=== PATIENT | male | born 1935 | race Caucasian/White ===

== ENCOUNTER 2018-05-18 10:40 | Inpatient (IN) | payer OTHER ==
[2018-05-18] MEDS: TRANEXAMIC ACID 1,000 MG in D5W 100 ML AT INCISION X1 IVPB (06:00)
[2018-05-18] MEDS: CEFAZOLIN 2 GM/50 ML (PMX) 50 ML (FOR WT < 120 KG) IVPB (06:00)
[2018-05-18] MEDS: LACTATED RINGER'S 1,000 ML IV (06:00)
[2018-05-18] MEDS: TRANEXAMIC ACID 1,000 MG in D5W 100 ML AT CLOSURE X1 IVPB (06:00)
[~2018-05-18 10:40] MED LIST: ETOMIDATE 20 MG INJ; ONDANSETRON 4 MG INJ; SEVOFLURANE 15 MIN
[2018-05-18] MEDS: ONDANSETRON 4 MG INJ IV ×3 (11:30→23:30)
[2018-05-18] MEDS: ASPIRIN (EC) 325 MG TAB PO (11:30)
[2018-05-18] MEDS ORDERED: oxyCODONE 5 MG TAB PO (11:30)
[2018-05-18] MEDS ORDERED: BISACODYL 10 MG SUPP PR (11:30)
[2018-05-18] MEDS ORDERED: BETHANECHOL 25 MG TAB PO (11:30)
[2018-05-18] MEDS ORDERED: NACL 0.9% 3 ML SYG IV (11:30)
[2018-05-18] MEDS: DOCUSATE SODIUM 100 MG CAP PO (11:30)
[2018-05-18] MEDS ORDERED: NALOXONE (0.4 MG/ML) INJ IV (11:30)
[2018-05-18] MEDS ORDERED: MAGNESIUM HYDROXIDE 30ML CUP PO (11:30)
[2018-05-18] MEDS ORDERED: DIPHENHYDRAMINE 50 MG INJ IV ×3 (11:30→16:00)
[2018-05-18] MEDS ORDERED: NA PHOSPHATE/BIPHOS 133 ML ENEMA PR (11:30)
[2018-05-18] MEDS ORDERED: SOD CHLORIDE 0.9% 500 ML IV (12:00)
[2018-05-18] MEDS ORDERED: FENTAnyl 50 MCG/ML VIAL (12:00)
[2018-05-18] MEDS ORDERED: MIDAZOLAM 1 MG/ML 2 ML INJ (12:01)
[2018-05-18 12:02] LABS: POTASSIUM 4.4 mmol/L (3.5-5.1)
[2018-05-18] MEDS ORDERED: BUPIVACAINE 0.75%/DEXT (SPINAL) 2 ML INJ (12:04)
[2018-05-18] MEDS ORDERED: PROPOFOL 20 ML (12:36)
[2018-05-18] MEDS ORDERED: DEXAMETHASONE 4 MG/ML 1 ML INJ (12:36)
[2018-05-18] MEDS ORDERED: LIDOCAINE 100 MG SYRINGE (12:36)
[2018-05-18] MEDS ORDERED: ALBUMIN HUMAN 5% 250 ML IV ×2 (13:00→16:00)
[2018-05-18] MEDS: SOD CHLORIDE 0.9% 1,000 ML IV (13:00)
[2018-05-18] MEDS ORDERED: ONDANSETRON 4 MG INJ IV ×2 (13:00→16:00)
[2018-05-18] MEDS ORDERED: LEVALBUTEROL (NEB) 1.25 MG/0.5 ML AMP HHN ×2 (13:00→16:00)
[2018-05-18] MEDS ORDERED: LABETALOL HCL 20MG INJ IV ×2 (13:00→16:00)
[2018-05-18] MEDS ORDERED: EPHEDrine SULFATE 50 MG/5 ML SYG IV ×2 (13:00→16:00)
[2018-05-18] MEDS ORDERED: MIDAZOLAM 1 MG/ML 2 ML INJ IV ×2 (13:00→16:00)
[2018-05-18] MEDS ORDERED: LORAZEPAM 2 MG INJ IV ×2 (13:00→16:00)
[2018-05-18] MEDS ORDERED: MEPERIDINE 25 MG INJ IV ×2 (13:00→16:00)
[2018-05-18] MEDS ORDERED: HYDROmorphONE 1 MG/5 ML IV SYRINGE IV ×3 (13:00)
[2018-05-18] MEDS ORDERED: FENTAnyl 50 MCG/ML VIAL IV ×4 (13:00→16:00)
[2018-05-18] MEDS ORDERED: IPRATROPIUM (NEB) 0.5 MG/2.5 ML AMP HHN ×2 (13:00→16:00)
[2018-05-18] MEDS ORDERED: LIDOCAINE 2% (SDV) 5 ML INJ (13:35)
[2018-05-18] MEDS: CEFAZOLIN 1 GM/50 ML (PMX) 50 ML IVPB ×2 (14:30→23:33)
[2018-05-18] MEDS: BACITRACIN 50000 UNITS INJ (14:55)
[2018-05-18] MEDS: POLYMYXIN B 500000 UNIT INJ (14:55)
[2018-05-18] MEDS ORDERED: HYDROmorphONE 0.5 MG/0.5 ML SYG IV ×3 (16:00)
[2018-05-18] MEDS ORDERED: hydrALAzine 20 MG INJ IV (16:00)
[2018-05-18] MEDS ORDERED: EPHEDrine SULFATE 50 MG/5 ML SYG (16:13)
[2018-05-18] MEDS ORDERED: PHENYLephrine (100 MCG/ML) 5ML SYG (16:13)
[2018-05-18] MEDS: VANCOMYCIN 1 GM INJ (16:28)
[2018-05-18] MEDS ORDERED: ACETAMINOPHEN 1000MG/100ML IV 100 ML (16:41)
[2018-05-18] MEDS: INSULIN ASPART [NOVOLOG] 3 ML PEN SC ×3 (17:35→20:39)
[2018-05-18] MEDS: SEVELAMER 800 MG TAB PO (17:35)
[2018-05-18] MEDS ORDERED: GLUCOSE GEL 15 GRAM TUBE PO (18:00)
[2018-05-18] MEDS ORDERED: DEXTROSE 50% 50 ML SYRINGE IV ×2 (18:00)
[2018-05-18] MEDS ORDERED: GLUCAGON 1 MG INJ IM (18:00)
[2018-05-18] MEDS ORDERED: GLUCOSE GEL 15 GRAM TUBE BUCCAL (18:00)
[2018-05-18 18:15] LABS: Allen Test ACCEPTAB; Arterial Base Excess -0.8 mmol/L (-3.0-3); Arterial COHb 2.1 % (0.0-3.0); Arterial Fraction of Oxyhgb 97.7 % (93.0-99.0); Arterial HCO3 24.4 mmol/L (22.0-26.0); Arterial MetHb 0.2 % (0.0-1.5); Arterial Total Hemglobin 9.3 g/dl (12.0-18.0); Arterial pCO2 42.7 mmhg (35-45); MODE MASK - SIMPLE; Site Right Radial
[2018-05-18 18:20] LABS: ADD MAN DIFF? NO
[2018-05-18 18:22] LABS: BASOPHIL # 0.1 10^3/ul (0.0-0.1); BASOPHILS % 0.3 % (0.0-2.0); EOSINOPHILS # 0.2 10^3/ul (0.0-0.5); HEMATOCRIT 27.8 % (42.0-52.0); HEMOGLOBIN 8.8 g/dl (14.0-18.0); LYMPHOCYTES # 1.7 10^3/ul (0.8-2.9); LYMPHOCYTES % 8.9 % (15.0-51.0); MEAN CORPUSCULAR HEMOGLOBIN 31.7 pg (29.0-33.0); MEAN CORPUSCULAR HGB CONC 31.7 g/dl (32.0-37.0); MEAN PLATELET VOLUME 10.6 fl (7.4-10.4); MONOCYTE # 0.6 10^3/ul (0.3-0.9); MONOCYTES % 3.3 % (0.0-11.0); NEUTROPHIL # 16.1 10^3/ul (1.6-7.5); NEUTROPHILS % 85.6 % (39.0-77.0); PLATELET COUNT 229 10^3/UL (140-415); RED BLOOD COUNT 2.78 10^6/ul (4.70-6.10); RED CELL DISTRIBUTION WIDTH 13.5 % (11.5-14.5)
[2018-05-18 18:22] LABS: WHITE BLOOD COUNT 18.8 10^3/ul (4.8-10.8)
[2018-05-18 18:40] LABS: ALANINE AMINOTRANSFERASE 14 IU/L (13-69); ALBUMIN 3.9 g/dl (3.3-4.9); ALBUMIN/GLOBULIN RATIO 1.44; ALKALINE PHOSPHATASE 84 IU/L (42-121); ANION GAP 20 (8-16); ASPARTATE AMINO TRANSFERASE 13 IU/L (15-46); BILIRUBIN,INDIRECT 0.2 mg/dl (0-1.1); BILIRUBIN,TOTAL 0.2 mg/dl (0.2-1.3); BLOOD UREA NITROGEN 31 mg/dl (7-20); CALCIUM 9.6 mg/dl (8.4-10.2); CARBON DIOXIDE 27 mmol/L (21-31); CHLORIDE 99 mmol/L (97-110); CREATININE 5.79 mg/dl (0.61-1.24); GLUCOSE 164 mg/dl (70-220); MAGNESIUM 2.2 mg/dl (1.7-2.5); PHOSPHORUS 5.7 mg/dl (2.5-4.9); POTASSIUM 3.9 mmol/L (3.5-5.1); SODIUM 142 mmol/L (135-144); TOTAL PROTEIN 6.6 g/dl (6.1-8.1)
[2018-05-18] MEDS: ACETAMINOPHEN 1000MG/100ML IV 100 ML IVPB (18:40)
[2018-05-18 18:48] LABS: PROTIME 13.3 Sec (11.9-14.9)
[2018-05-18 18:49] LABS: PARTIAL THROMBOPLASTIN TIME 30.2 Sec (23.0-35.0)
[2018-05-18] MEDS ORDERED: INSULIN GLARGINE [LANTus] (100 UNITS/ML) SYG SC (20:00)
[2018-05-18] MEDS: hydrALAzine 20 MG INJ IV (20:14)
[2018-05-18] MEDS: oxyCODONE 5 MG TAB PO (20:14)
[2018-05-18] MEDS: ACCU-CHEK XX (20:29)
[2018-05-18] MEDS: FISH OIL 1,000 MG CAP PO (20:35)
[2018-05-18] MEDS: ATORVASTATIN 10 MG TAB PO (20:35)
[2018-05-18] MEDS: LACTOBACILLUS RHAMNOSUS CAP PO (20:35)
[2018-05-18] MEDS: INSULIN GLARGINE [LANTus] (100 UNITS/ML) SYG SC (20:39)
[2018-05-18] MEDS: CHOLECALCIFEROL 1,000 UNIT TAB PO (20:39)
[2018-05-18] MEDS ORDERED: NON-FORMULARY/PATIENT OWN MED (Lactobacillus Acidophilus (Probiotic) 1 CAP) PO (21:00)
[2018-05-19] MEDS: SOD CHLORIDE 0.9% 1,000 ML IV ×2 (01:30→14:00)
[2018-05-19] MEDS: ACCU-CHEK XX ×7 (02:29→19:35)
[2018-05-19] MEDS: LACTATED RINGER'S 1,000 ML IV ×2 (02:30→05:05)
[2018-05-19] MEDS: oxyCODONE 5 MG TAB PO ×2 (04:31→19:30)
[2018-05-19] MEDS: ONDANSETRON 4 MG INJ IV (04:33)
[2018-05-19 05:06] LABS: ADD MAN DIFF? NO
[2018-05-19 05:14] LABS: WHITE BLOOD COUNT 11.6 10^3/ul (4.8-10.8)
[2018-05-19 05:14] LABS: BASOPHILS % 0.2 % (0.0-2.0); HEMATOCRIT 25.9 % (42.0-52.0); HEMOGLOBIN 8.3 g/dl (14.0-18.0); LYMPHOCYTES # 0.7 10^3/ul (0.8-2.9); MEAN CORPUSCULAR HEMOGLOBIN 31.7 pg (29.0-33.0); MEAN CORPUSCULAR VOLUME 98.9 fl (82.0-101.0); MEAN PLATELET VOLUME 11.2 fl (7.4-10.4); MONOCYTE # 0.8 10^3/ul (0.3-0.9); MONOCYTES % 6.7 % (0.0-11.0); NEUTROPHILS % 86.7 % (39.0-77.0); PLATELET COUNT 227 10^3/UL (140-415); RED BLOOD COUNT 2.62 10^6/ul (4.70-6.10); RED CELL DISTRIBUTION WIDTH 13.5 % (11.5-14.5)
[2018-05-19] MEDS: PANTOPRAZOLE (EC) 40 MG TAB PO (05:36)
[2018-05-19] MEDS: CEFAZOLIN 1 GM/50 ML (PMX) 50 ML IVPB (05:36)
[2018-05-19 05:47] LABS: ANION GAP 20 (8-16); BLOOD UREA NITROGEN 35 mg/dl (7-20); CALCIUM 8.9 mg/dl (8.4-10.2); CARBON DIOXIDE 25 mmol/L (21-31); CHLORIDE 101 mmol/L (97-110); CREATININE 6.25 mg/dl (0.61-1.24); GLUCOSE 260 mg/dl (70-220); POTASSIUM 5.2 mmol/L (3.5-5.1); SODIUM 141 mmol/L (135-144)
[2018-05-19 08:14] LABS: HEMOGLOBIN A1C 5.6 % (0-5.9)
[2018-05-19] MEDS: INSULIN ASPART [NOVOLOG] 3 ML PEN SC ×8 (08:35→20:45)
[2018-05-19] MEDS: ASPIRIN 81 MG TAB PO (08:41)
[2018-05-19] MEDS: DOCUSATE SODIUM 100 MG CAP PO ×2 (08:41→20:37)
[2018-05-19] MEDS: FINASTERIDE 5 MG TAB PO (08:42)
[2018-05-19] MEDS: VITAMIN B COMPLEX/VIT C CAP PO (08:42)
[2018-05-19] MEDS: FEBUXOSTAT 40 MG TABLET PO (08:42)
[2018-05-19] MEDS: FISH OIL 1,000 MG CAP PO ×2 (08:43→20:38)
[2018-05-19] MEDS: CHOLECALCIFEROL 1,000 UNIT TAB PO ×2 (08:43→20:37)
[2018-05-19] MEDS: CELECOXIB 200 MG CAP PO ×2 (08:43→20:38)
[2018-05-19] MEDS: LEFLUNOMIDE 10 MG TAB PO (08:44)
[2018-05-19] MEDS: SEVELAMER 800 MG TAB PO ×3 (08:44→18:03)
[2018-05-19] MEDS: LACTOBACILLUS RHAMNOSUS CAP PO ×2 (08:45→20:37)
[2018-05-19] MEDS: FERROUS FUMARATE (SR) TAB PO ×2 (08:45→20:37)
[2018-05-19] MEDS ORDERED: NON-FORMULARY/PATIENT OWN MED (Aspirin (Low Dose Aspirin) 81 MG) PO (09:00)
[2018-05-19] MEDS ORDERED: LEFLUNOMIDE 20 MG TAB PO (09:00)
[2018-05-19] MEDS ORDERED: UBIDECARENONE 200 MG PO (09:00)
[2018-05-19] MEDS: ASPIRIN (EC) 325 MG TAB PO (09:12)
[2018-05-19 12:39] LABS: HEPATITIS B SURFACE ANTIGEN NEGATIVE (NEGATIVE)
[2018-05-19 14:54] LABS: HEPATITIS B SURFACE ANTIBODY INDETERMINATE (NEGATIVE)
[2018-05-19] MEDS: EPOETIN 4000 UNITS/1 ML INJ (ESRD) SC (18:03)
[2018-05-19] MEDS: INSULIN GLARGINE [LANTus] (100 UNITS/ML) SYG SC (20:36)
[2018-05-19] MEDS: ATORVASTATIN 10 MG TAB PO (20:37)
[2018-05-19] MEDS: ZOLPIDEM 5 MG TAB PO (22:10)
[2018-05-20] MEDS: SOD CHLORIDE 0.9% 1,000 ML IV (02:30)
[2018-05-20] MEDS: ACCU-CHEK XX ×7 (02:42→19:55)
[2018-05-20 05:14] LABS: ADD MAN DIFF? NO
[2018-05-20 05:19] LABS: BASOPHILS % 0.4 % (0.0-2.0); EOSINOPHILS # 0.2 10^3/ul (0.0-0.5); HEMATOCRIT 24.3 % (42.0-52.0); HEMOGLOBIN 7.5 g/dl (14.0-18.0); LYMPHOCYTES # 1.6 10^3/ul (0.8-2.9); LYMPHOCYTES % 21.5 % (15.0-51.0); MEAN CORPUSCULAR HGB CONC 30.9 g/dl (32.0-37.0); MEAN CORPUSCULAR VOLUME 100.4 fl (82.0-101.0); MEAN PLATELET VOLUME 10.9 fl (7.4-10.4); MONOCYTE # 0.8 10^3/ul (0.3-0.9); MONOCYTES % 10.9 % (0.0-11.0); NEUTROPHIL # 4.8 10^3/ul (1.6-7.5); NEUTROPHILS % 63.9 % (39.0-77.0); PLATELET COUNT 206 10^3/UL (140-415); RED BLOOD COUNT 2.42 10^6/ul (4.70-6.10); RED CELL DISTRIBUTION WIDTH 13.7 % (11.5-14.5)
[2018-05-20 05:19] LABS: WHITE BLOOD COUNT 7.4 10^3/ul (4.8-10.8)
[2018-05-20] MEDS: PANTOPRAZOLE (EC) 40 MG TAB PO (05:29)
[2018-05-20] MEDS: oxyCODONE 5 MG TAB PO (05:30)
[2018-05-20 05:51] LABS: ANION GAP 10 (8-16); BLOOD UREA NITROGEN 15 mg/dl (7-20); CALCIUM 8.7 mg/dl (8.4-10.2); CARBON DIOXIDE 32 mmol/L (21-31); CHLORIDE 104 mmol/L (97-110); CREATININE 3.58 mg/dl (0.61-1.24); GLUCOSE 131 mg/dl (70-220); POTASSIUM 4.4 mmol/L (3.5-5.1); SODIUM 142 mmol/L (135-144)
[2018-05-20] MEDS: INSULIN ASPART [NOVOLOG] 3 ML PEN SC ×7 (07:35→20:57)
[2018-05-20] MEDS: SEVELAMER 800 MG TAB PO ×3 (07:55→17:55)
[2018-05-20] MEDS: DOCUSATE SODIUM 100 MG CAP PO ×2 (08:37→20:56)
[2018-05-20] MEDS: FISH OIL 1,000 MG CAP PO ×2 (08:37→20:56)
[2018-05-20] MEDS: LACTOBACILLUS RHAMNOSUS CAP PO ×2 (08:37→20:56)
[2018-05-20] MEDS: CHOLECALCIFEROL 1,000 UNIT TAB PO ×2 (08:38→20:56)
[2018-05-20] MEDS: VITAMIN B COMPLEX/VIT C CAP PO (08:38)
[2018-05-20] MEDS: FERROUS FUMARATE (SR) TAB PO ×2 (08:38→20:56)
[2018-05-20] MEDS: FINASTERIDE 5 MG TAB PO (08:38)
[2018-05-20] MEDS: LEFLUNOMIDE 10 MG TAB PO (08:39)
[2018-05-20] MEDS: FEBUXOSTAT 40 MG TABLET PO (08:39)
[2018-05-20] MEDS: CELECOXIB 200 MG CAP PO ×2 (08:39→20:57)
[2018-05-20] MEDS: ASPIRIN (EC) 325 MG TAB PO (08:41)
[2018-05-20] MEDS: TERBINAFINE 250 MG TAB PO ×2 (10:29→20:56)
[2018-05-20] MEDS ORDERED: SOD CHLORIDE 0.9% 1,000 ML IV (13:41)
[2018-05-20] MEDS: INSULIN GLARGINE [LANTus] (100 UNITS/ML) SYG SC (20:55)
[2018-05-20] MEDS: ATORVASTATIN 10 MG TAB PO (20:56)
[2018-05-21] MEDS: ACCU-CHEK XX ×7 (01:17→19:55)
[2018-05-21 04:56] LABS: ADD MAN DIFF? NO
[2018-05-21 05:08] LABS: WHITE BLOOD COUNT 7.7 10^3/ul (4.8-10.8)
[2018-05-21 05:08] LABS: BASOPHILS % 0.5 % (0.0-2.0); EOSINOPHILS # 0.5 10^3/ul (0.0-0.5); EOSINOPHILS % 6.6 % (0.0-7.0); HEMATOCRIT 24.1 % (42.0-52.0); HEMOGLOBIN 7.6 g/dl (14.0-18.0); LYMPHOCYTES # 1.7 10^3/ul (0.8-2.9); LYMPHOCYTES % 21.8 % (15.0-51.0); MEAN CORPUSCULAR HEMOGLOBIN 31.5 pg (29.0-33.0); MEAN CORPUSCULAR HGB CONC 31.5 g/dl (32.0-37.0); MEAN PLATELET VOLUME 10.9 fl (7.4-10.4); MONOCYTE # 0.7 10^3/ul (0.3-0.9); MONOCYTES % 9.3 % (0.0-11.0); NEUTROPHIL # 4.7 10^3/ul (1.6-7.5); NEUTROPHILS % 61.5 % (39.0-77.0); PLATELET COUNT 232 10^3/UL (140-415); RED BLOOD COUNT 2.41 10^6/ul (4.70-6.10); RED CELL DISTRIBUTION WIDTH 13.6 % (11.5-14.5)
[2018-05-21 05:33] LABS: ANION GAP 11 (8-16); BLOOD UREA NITROGEN 24 mg/dl (7-20); CALCIUM 8.6 mg/dl (8.4-10.2); CARBON DIOXIDE 31 mmol/L (21-31); CHLORIDE 102 mmol/L (97-110); CREATININE 5.62 mg/dl (0.61-1.24); GLUCOSE 120 mg/dl (70-220); POTASSIUM 4.4 mmol/L (3.5-5.1); SODIUM 140 mmol/L (135-144)
[2018-05-21] MEDS: PANTOPRAZOLE (EC) 40 MG TAB PO (05:33)
[2018-05-21] MEDS: INSULIN ASPART [NOVOLOG] 3 ML PEN SC ×7 (08:30→21:00)
[2018-05-21] MEDS: LACTOBACILLUS RHAMNOSUS CAP PO ×2 (09:19→21:09)
[2018-05-21] MEDS: CELECOXIB 200 MG CAP PO (09:19)
[2018-05-21] MEDS: VITAMIN B COMPLEX/VIT C CAP PO (09:19)
[2018-05-21] MEDS: CHOLECALCIFEROL 1,000 UNIT TAB PO ×2 (09:19→21:08)
[2018-05-21] MEDS: oxyCODONE 5 MG TAB PO ×2 (09:19→20:26)
[2018-05-21] MEDS: FERROUS FUMARATE (SR) TAB PO ×2 (09:20→22:37)
[2018-05-21] MEDS: TERBINAFINE 250 MG TAB PO ×2 (09:20→21:08)
[2018-05-21] MEDS: ASPIRIN (EC) 325 MG TAB PO (09:20)
[2018-05-21] MEDS: LEFLUNOMIDE 10 MG TAB PO (09:20)
[2018-05-21] MEDS: SEVELAMER CARBONATE 800 MG TABLET PO ×3 (09:20→17:52)
[2018-05-21] MEDS: FEBUXOSTAT 40 MG TABLET PO (09:20)
[2018-05-21] MEDS: FISH OIL 1,000 MG CAP PO ×2 (09:20→21:08)
[2018-05-21] MEDS: FINASTERIDE 5 MG TAB PO (09:20)
[2018-05-21] MEDS: DOCUSATE SODIUM 100 MG CAP PO ×2 (09:21→21:08)
[2018-05-21] MEDS: INSULIN GLARGINE [LANTus] (100 UNITS/ML) SYG SC (20:00)
[2018-05-21] MEDS: GLUCOSE GEL 15 GRAM TUBE PO ×3 (21:05→22:55)
[2018-05-21] MEDS: ATORVASTATIN 10 MG TAB PO (21:09)
[2018-05-21] MEDS: CELECOXIB 100 MG CAP PO (22:37)
[2018-05-21 23:23] LABS: GLUCOSE 56 mg/dl (70-220)
[2018-05-22] MEDS: DEXTROSE 50% 50 ML SYRINGE IV (00:23)
[2018-05-22] MEDS: ACCU-CHEK XX ×7 (02:00→20:18)
[2018-05-22 04:50] LABS: ADD MAN DIFF? NO
[2018-05-22 04:56] LABS: BASOPHIL # 0.1 10^3/ul (0.0-0.1); BASOPHILS % 0.6 % (0.0-2.0); EOSINOPHILS # 0.6 10^3/ul (0.0-0.5); EOSINOPHILS % 7.5 % (0.0-7.0); HEMATOCRIT 25.2 % (42.0-52.0); LYMPHOCYTES # 1.6 10^3/ul (0.8-2.9); LYMPHOCYTES % 19.1 % (15.0-51.0); MEAN CORPUSCULAR HEMOGLOBIN 31.3 pg (29.0-33.0); MEAN CORPUSCULAR HGB CONC 31.7 g/dl (32.0-37.0); MEAN CORPUSCULAR VOLUME 98.4 fl (82.0-101.0); MEAN PLATELET VOLUME 10.9 fl (7.4-10.4); MONOCYTE # 0.7 10^3/ul (0.3-0.9); MONOCYTES % 8.8 % (0.0-11.0); NEUTROPHIL # 5.3 10^3/ul (1.6-7.5); NEUTROPHILS % 63.3 % (39.0-77.0); PLATELET COUNT 275 10^3/UL (140-415); RED BLOOD COUNT 2.56 10^6/ul (4.70-6.10); RED CELL DISTRIBUTION WIDTH 13.5 % (11.5-14.5)
[2018-05-22 04:56] LABS: WHITE BLOOD COUNT 8.4 10^3/ul (4.8-10.8)
[2018-05-22] MEDS: PANTOPRAZOLE (EC) 40 MG TAB PO (05:22)
[2018-05-22 05:27] LABS: ANION GAP 16 (8-16); BLOOD UREA NITROGEN 33 mg/dl (7-20); CALCIUM 8.6 mg/dl (8.4-10.2); CARBON DIOXIDE 28 mmol/L (21-31); CHLORIDE 96 mmol/L (97-110); CREATININE 7.21 mg/dl (0.61-1.24); GLUCOSE 186 mg/dl (70-220); POTASSIUM 4.8 mmol/L (3.5-5.1); SODIUM 135 mmol/L (135-144)
[2018-05-22] MEDS: INSULIN ASPART [NOVOLOG] 3 ML PEN SC ×7 (07:50→20:18)
[2018-05-22] MEDS: FISH OIL 1,000 MG CAP PO ×2 (09:00→20:18)
[2018-05-22] MEDS: SEVELAMER CARBONATE 800 MG TABLET PO ×3 (09:02→18:08)
[2018-05-22] MEDS: oxyCODONE 5 MG TAB PO (09:04)
[2018-05-22] MEDS: FEBUXOSTAT 40 MG TABLET PO (09:05)
[2018-05-22] MEDS: CELECOXIB 100 MG CAP PO ×2 (09:05→20:18)
[2018-05-22] MEDS: FINASTERIDE 5 MG TAB PO (09:05)
[2018-05-22] MEDS: VITAMIN B COMPLEX/VIT C CAP PO (09:05)
[2018-05-22] MEDS: ASPIRIN (EC) 325 MG TAB PO (09:05)
[2018-05-22] MEDS: TERBINAFINE 250 MG TAB PO ×2 (09:05→20:18)
[2018-05-22] MEDS: FERROUS FUMARATE (SR) TAB PO ×2 (09:05→20:18)
[2018-05-22] MEDS: LEFLUNOMIDE 10 MG TAB PO (09:05)
[2018-05-22] MEDS: LACTOBACILLUS RHAMNOSUS CAP PO ×2 (09:06→20:18)
[2018-05-22] MEDS: CHOLECALCIFEROL 1,000 UNIT TAB PO ×2 (09:06→20:18)
[2018-05-22] MEDS: EPOETIN 10000 UNITS/1 ML INJ (ESRD) SC (18:11)
[2018-05-22] MEDS: ATORVASTATIN 10 MG TAB PO (20:18)
[2018-05-23] MEDS: ACCU-CHEK XX ×7 (01:30→19:55)
[2018-05-23] MEDS: oxyCODONE 5 MG TAB PO ×3 (01:30→23:56)
[2018-05-23] MEDS: PANTOPRAZOLE (EC) 40 MG TAB PO (05:37)
[2018-05-23] MEDS ORDERED: CEPASTAT LOZENGE MT (07:30)
[2018-05-23] MEDS: VITAMIN B COMPLEX/VIT C CAP PO (08:31)
[2018-05-23] MEDS: SEVELAMER CARBONATE 800 MG TABLET PO ×3 (08:31→17:53)
[2018-05-23] MEDS: LEFLUNOMIDE 10 MG TAB PO (08:31)
[2018-05-23] MEDS: LACTOBACILLUS RHAMNOSUS CAP PO ×2 (08:31→21:00)
[2018-05-23] MEDS: FERROUS FUMARATE (SR) TAB PO ×2 (08:32→21:00)
[2018-05-23] MEDS: FEBUXOSTAT 40 MG TABLET PO (08:32)
[2018-05-23] MEDS: CELECOXIB 100 MG CAP PO ×2 (08:32→20:56)
[2018-05-23] MEDS: TERBINAFINE 250 MG TAB PO ×2 (08:32→21:00)
[2018-05-23] MEDS: ASPIRIN (EC) 325 MG TAB PO (08:32)
[2018-05-23] MEDS: SENNA/DOCUSATE NA (8.6MG/50MG) TAB PO (08:32)
[2018-05-23] MEDS: FISH OIL 1,000 MG CAP PO ×2 (08:32→21:00)
[2018-05-23] MEDS: CHOLECALCIFEROL 1,000 UNIT TAB PO ×2 (08:32→21:00)
[2018-05-23] MEDS: FINASTERIDE 5 MG TAB PO (08:32)
[2018-05-23] MEDS: INSULIN ASPART [NOVOLOG] 3 ML PEN SC ×7 (08:48→21:00)
[2018-05-23 09:03] LABS: ADD MAN DIFF? NO
[2018-05-23 09:08] LABS: WHITE BLOOD COUNT 8.1 10^3/ul (4.8-10.8)
[2018-05-23 09:08] LABS: BASOPHIL # 0.1 10^3/ul (0.0-0.1); BASOPHILS % 0.6 % (0.0-2.0); EOSINOPHILS # 0.7 10^3/ul (0.0-0.5); EOSINOPHILS % 8.1 % (0.0-7.0); HEMATOCRIT 26.1 % (42.0-52.0); HEMOGLOBIN 8.2 g/dl (14.0-18.0); LYMPHOCYTES # 1.7 10^3/ul (0.8-2.9); LYMPHOCYTES % 20.7 % (15.0-51.0); MEAN CORPUSCULAR HEMOGLOBIN 31.4 pg (29.0-33.0); MEAN CORPUSCULAR HGB CONC 31.4 g/dl (32.0-37.0); MEAN PLATELET VOLUME 10.2 fl (7.4-10.4); MONOCYTE # 0.9 10^3/ul (0.3-0.9); MONOCYTES % 11.6 % (0.0-11.0); NEUTROPHIL # 4.7 10^3/ul (1.6-7.5); NEUTROPHILS % 58.4 % (39.0-77.0); PLATELET COUNT 309 10^3/UL (140-415); RED BLOOD COUNT 2.61 10^6/ul (4.70-6.10); RED CELL DISTRIBUTION WIDTH 13.2 % (11.5-14.5)
[2018-05-23 10:01] LABS: ANION GAP 14 (8-16); BLOOD UREA NITROGEN 21 mg/dl (7-20); CALCIUM 8.9 mg/dl (8.4-10.2); CARBON DIOXIDE 29 mmol/L (21-31); CHLORIDE 100 mmol/L (97-110); CREATININE 5.42 mg/dl (0.61-1.24); GLUCOSE 142 mg/dl (70-220); POTASSIUM 4.7 mmol/L (3.5-5.1); SODIUM 138 mmol/L (135-144)
[2018-05-23 10:07] LABS: IRON 53 ug/dl (35-150)
[2018-05-23 10:16] LABS: % IRON SATURATION 28 % SAT (22-52); TOTAL IRON BINDING CAPACITY 188 ug/dl (241-421)
[2018-05-23] MEDS: ATORVASTATIN 10 MG TAB PO (20:56)
[2018-05-24] MEDS: ACCU-CHEK XX ×5 (02:00→14:40)
[2018-05-24] MEDS: PANTOPRAZOLE (EC) 40 MG TAB PO (05:04)
[2018-05-24 08:30] LABS: ADD MAN DIFF? NO
[2018-05-24 08:31] LABS: WHITE BLOOD COUNT 9.3 10^3/ul (4.8-10.8)
[2018-05-24 08:31] LABS: BASOPHILS % 0.4 % (0.0-2.0); EOSINOPHILS # 0.7 10^3/ul (0.0-0.5); EOSINOPHILS % 7.4 % (0.0-7.0); HEMATOCRIT 27.8 % (42.0-52.0); HEMOGLOBIN 8.6 g/dl (14.0-18.0); LYMPHOCYTES % 21.9 % (15.0-51.0); MEAN CORPUSCULAR HEMOGLOBIN 30.9 pg (29.0-33.0); MEAN CORPUSCULAR HGB CONC 30.9 g/dl (32.0-37.0); MONOCYTE # 1.2 10^3/ul (0.3-0.9); MONOCYTES % 12.5 % (0.0-11.0); NEUTROPHIL # 5.3 10^3/ul (1.6-7.5); NEUTROPHILS % 57.3 % (39.0-77.0); PLATELET COUNT 347 10^3/UL (140-415); RED BLOOD COUNT 2.78 10^6/ul (4.70-6.10); RED CELL DISTRIBUTION WIDTH 13.3 % (11.5-14.5)
[2018-05-24] MEDS: INSULIN ASPART [NOVOLOG] 3 ML PEN SC ×4 (08:41→12:54)
[2018-05-24 08:50] LABS: ANION GAP 15 (8-16); BLOOD UREA NITROGEN 26 mg/dl (7-20); CALCIUM 8.9 mg/dl (8.4-10.2); CARBON DIOXIDE 28 mmol/L (21-31); CHLORIDE 101 mmol/L (97-110); CREATININE 7.07 mg/dl (0.61-1.24); GLUCOSE 160 mg/dl (70-220); POTASSIUM 4.8 mmol/L (3.5-5.1); SODIUM 139 mmol/L (135-144)
[2018-05-24] MEDS: SEVELAMER CARBONATE 800 MG TABLET PO ×2 (09:04→13:14)
[2018-05-24] MEDS: CHOLECALCIFEROL 1,000 UNIT TAB PO (09:05)
[2018-05-24] MEDS: CELECOXIB 100 MG CAP PO (09:05)
[2018-05-24] MEDS: FERROUS FUMARATE (SR) TAB PO (09:05)
[2018-05-24] MEDS: FISH OIL 1,000 MG CAP PO (09:05)
[2018-05-24] MEDS: FEBUXOSTAT 40 MG TABLET PO (09:05)
[2018-05-24] MEDS: VITAMIN B COMPLEX/VIT C CAP PO (09:05)
[2018-05-24] MEDS: TERBINAFINE 250 MG TAB PO (09:05)
[2018-05-24] MEDS: LEFLUNOMIDE 10 MG TAB PO (09:05)
[2018-05-24] MEDS: ASPIRIN (EC) 325 MG TAB PO (09:05)
[2018-05-24] MEDS: LACTOBACILLUS RHAMNOSUS CAP PO (09:05)
[2018-05-24] MEDS: FINASTERIDE 5 MG TAB PO (09:06)
[2018-05-24] MEDS: oxyCODONE 5 MG TAB PO (16:27)
== END 2018-05-24 16:30 | disposition home health service (06) | DRG 466 ==
LOC: REC 10:40 → MS1 05-20 15:27 → ICU 17:23
PROVIDERS: Orthopaedic Surgery
PROC: 0SR904A Replacement of Right Hip Joint with Ceramic on Polyethylene Synthetic Substitute, Uncemented, Open Approach (ICD-10-PCS; principal; 2018-05-18 13:00)
PROC: 0SP90JZ Removal of Synthetic Substitute from Right Hip Joint, Open Approach (ICD-10-PCS; 2018-05-18 13:00)
PROC: 5A1D70Z Performance of Urinary Filtration, Intermittent, Less than 6 Hours Per Day (ICD-10-PCS; 2018-05-18 13:30)
PROC: 5A1D70Z Performance of Urinary Filtration, Intermittent, Less than 6 Hours Per Day (ICD-10-PCS; 2018-05-18 13:30)
DX: T84.090A Other mechanical complication of internal right hip prosthesis, initial encounter (principal); N18.6 End stage renal disease; I50.22 Chronic systolic (congestive) heart failure; I13.2 Hypertensive heart and chronic kidney disease with heart failure and with stage 5 chronic kidney disease, or end stage renal disease; N40.0 Benign prostatic hyperplasia without lower urinary tract symptoms; E11.22 Type 2 diabetes mellitus with diabetic chronic kidney disease; Z79.82 Long term (current) use of aspirin; D63.1 Anemia in chronic kidney disease; E11.3599 Type 2 diabetes mellitus with proliferative diabetic retinopathy without macular edema, unspecified eye; B35.1 Tinea unguium; H91.8X3 Other specified hearing loss, bilateral; E78.5 Hyperlipidemia, unspecified; Z99.2 Dependence on renal dialysis
CPT/HCPCS: 36600; 71045; 72170; 80048; 80053; 82803; 82947; 82962; 83036; 83540; 83735; 84100; 84132; 85025; 85610; 85730; 86706; 86850; 86900; 86901; 86920; 87070; 87075; 87081; 87116; 87340; 88300; 90935; 97110; 97116; 97163; 97165; 97530; 97535